=== PATIENT | male | born 1965 | race Hispanic/Latino ===

== ENCOUNTER 2021-05-02 10:43 | Emergency (ER) | payer BC ==
[~2021-05-02] VITALS: Ht 165.1 cm; Wt 114.8 kg
[2021-05-02] MEDS: SODIUM CHLORIDE 0.9% 1000ML 1,000 ML IV SCH ×2 (11:04→12:17)
[2021-05-02] MEDS ORDERED: LACTATED RINGER'S 1,000 ML ONE (11:08)
[2021-05-02 11:09] LABS: BASOPHILS # (AUTO) 0.1 (0.0-0.1); BASOPHILS % 0.5 % (0.0-1.0); EOSINOPHILS # (AUTO) 0.2 (0.0-0.4); EOSINOPHILS % 1.4 % (0.0-6.0); HEMATOCRIT 48.8 % (38.2-49.6); HEMOGLOBIN 16.2 g/dL (14.0-18.0); LYMPHOCYTES # (AUTO) 2.3 (1.0-3.2); LYMPHOCYTES % 20.2 % (18.0-39.1); MEAN CORPUSCULAR HEMOGLOBIN 31.8 pg (28-32); MEAN CORPUSCULAR HGB CONC 33.2 g/dL (31-35); MEAN CORPUSCULAR VOLUME 95.9 fL (81-99); MONOCYTES # (AUTO) 0.6 (0.2-0.8); MONOCYTES % 5.4 % (4.4-11.3); NEUTROPHILS # (AUTO) 8.1 (2.1-6.9); NEUTROPHILS % 71.9 % (38.7-80.0); PLATELET COUNT 153 x10e3/uL (140-360); RED BLOOD COUNT 5.09 x10e6/uL (4.3-5.7); RED CELL DISTRIBUTION WIDTH 12.9 % (11.7-14.4)
[2021-05-02 11:33] LABS: ALBUMIN/GLOBULIN RATIO 1.3 (0.8-2.0); ANION GAP 13.4 mmol/L (8-16); CREATININE, SERUM 1.13 mg/dL (0.72-1.25); POTASSIUM 3.4 mmol/L (3.5-5.1)
[2021-05-02] MEDS ORDERED: ACETAMINOPHEN 325 MG TAB PO PRN (12:15)
[2021-05-02] MEDS ORDERED: ACETAMINOPHEN 325 MG TAB ONE (12:26)
== END 2021-05-02 13:45 | disposition home or self-care (01) ==
LOC: ER 10:46
DX: R42 Dizziness and giddiness (principal); R61 Generalized hyperhidrosis; R11.2 Nausea with vomiting, unspecified; I49.3 Ventricular premature depolarization
CPT/HCPCS: 36415; 80053; 84484; 85025; 93005; 99283; J7121

== ENCOUNTER 2021-10-19 10:14 | Emergency (ER) | payer BC ==
[~2021-10-19] VITALS: Ht 165.1 cm; Wt 114.8 kg
[2021-10-19] MEDS ORDERED: ONDANSETRON ODT4 MG PO (10:32)
[2021-10-19] MEDS ORDERED: MUCINEX DM ER1 EACH PO (10:32)
== END 2021-10-19 10:55 | disposition home or self-care (01) ==
LOC: ER 10:55
DX: U07.1 COVID-19 (principal); R06.02 Shortness of breath; R11.0 Nausea; I10 Essential (primary) hypertension; E03.9 Hypothyroidism, unspecified
CPT/HCPCS: 99282